=== PATIENT | male | born 1985 | race Caucasian/White ===

== ENCOUNTER 2020-05-09 07:14 | Day surgery (SDC) | payer OTHER ==
[~2020-05-09] VITALS: Ht 177.8 cm; Wt 104.5 kg
[~2020-05-09 07:14] MED LIST: BUSPIRONE HCL30 MG PO; HYDROCODON-ACE1 EAC7 PO; HYDROXYZINE HCL50 MG PO; LISINOPRIL20 MG PO; ZANAFLEX6 MG PO
[2020-05-09 07:42] LABS: CALC OSMOLALITY 279 mosm/kg (275-300); CALCIUM 8.8 mg/dL (8.5-10.1); CARBON DIOXIDE 30.1 mmol/L (21.0-32.0); CHLORIDE - SERUM 106 mmol/L (98-107); GLUCOSE 102 mg/dL (74-106); POTASSIUM - SERUM 3.9 mmol/L (3.5-5.1); SODIUM 141 mmol/L (136-145); UREA NITROGEN 11 mg/dL (7-18); eGFR NON AFRICAN AMERICAN > 90 mL/min (90-120)
[2020-05-09 07:59] LABS: SARS-CoV-2 ANTIGEN NEGATIVE- SARS-COV-2 (NEGATIVE)
[2020-05-09 08:04] LABS: HEMATOCRIT 45.1 % (42.0-54.0); HEMOGLOBIN 15.4 g/dL (13.5-17.5); LYMPHOCYTES 35.7 % (15-50); MCH 30.6 pg (26.0-34.0); MCHC 34.1 g/dL (31.0-37.0); MCV 89.5 fL (80.0-100.0); MEAN PLATELET VOLUME 11.2 fL (7.4-10.4); NEUTROPHILS 55.7 % (40-80); PLATELET COUNT 160 10x3/uL (130-400); RBC 5.04 10x6/uL (4.20-6.10); RDW 14.2 % (11.5-14.5); WBC 7.8 10x3/uL (4.8-10.8)
[2020-05-09] MEDS ORDERED: CELEBREX 100 M100 MG PO (08:17)
[2020-05-09 08:20] VITALS: BP 117/69; Ht 177.8 cm; Wt 104.5 kg
--- NOTE | 2020-05-09 15:33 | NUR ---
IV D/C'D WITH CANNULA INTACT, PRESSURE HELD AND DRSG PLACED. DISCHARGE INTRUCTIONS GIVEN AND PT VERBALIZED AN UNDERSTANDING. DISCHARGED HOME IN STABLE CONDITION AND WITHOUT C/O
--- NOTE | 2020-05-10 07:55 | OP ---
PATIENT NAME: GUIDO HUFF MEDICAL RECORD: [id number] :85 LOCATION:[facility] ADMISSION DATE: SURGEON: PATRICIA GALAN MD DATE OF OPERATION: 05/09/2020 PREOPERATIVE DIAGNOSES: 1. Left knee pain. 2. Lateral meniscus tear. POSTOPERATIVE DIAGNOSES: 1. Left knee pain. 2. Lateral meniscus tear. PROCEDURE PERFORMED: Left knee scope with partial lateral meniscectomy and limited synovectomy. INDICATIONS FOR THE PROCEDURE: Mr. Huff is a 34-year-old male with history of left knee pain. He injured his knee a few weeks ago and has been having pain ever since. MRI showed evidence of a tear in the anterior portion of the lateral meniscus. Arrangements were made for him to come to the operating room today for knee arthroscopy. Risks, benefits and alternatives of surgery were discussed with the patient and consent was obtained. DESCRIPTION OF PROCEDURE: The patient was met in the holding area where his identity and confirmation of the procedure was performed. Left lower extremity was marked. He was taken to the operating room where he was placed supine on the operating table and anesthesia was administered. Tourniquet was applied to the left thigh and the thigh was positioned in the leg smith. Left lower extremity was prepped and draped in a sterile fashion. The patient received preoperative antibiotics and timeout was performed before initiating the case. On initiation of the case, the leg was exsanguinated and the tourniquet was raised. Total tourniquet time was 29 minutes. We began with placement of our superior medial portal, inserted the cannula and filled the knee with fluid. We then placed our anterolateral portal and inserted the camera and placed in the anterior medial portal under direct visualization. Diagnostic knee arthroscopy was performed. 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 The trochlea was in good condition. The medial compartment was in good condition. No evidence of meniscus tear. ACL was intact. Lateral compartment cartilage was okay, but there was horizontal tearing in the anterior fibers of the anterior horn of the meniscus. Limited synovectomy and partial lateral meniscectomy was performed with the shaver. Before and after images were obtained. Fluid was then drained from the knee and instruments were removed. The portal sites were injected with 0.25% Marcaine with epinephrine. These were then closed with nylon suture. Sterile dressing was placed. The patient was turned back over to anesthesia where he was awakened, extubated, and taken to recovery room in stable condition. POSTOPERATIVE PLAN: The patient is going to return home with his family today. He may be weightbearing as tolerated on the left lower extremity. We will get him started with physical therapy in 2-3 days. Follow up in clinic in 2 weeks. COMPLICATIONS: None. ESTIMATED BLOOD LOSS: 5 mL. OPERATIVE REPORT [id number] GUIDO HUFF ANESTHESIA: General. TRANSINT:[id number] Voice Confirmation ID: [id number] DOCUMENT ID: [id number] PATRICIA GALAN MD at 0755 CC: [id number] DICTATION DATE: 05/09/20 1218 [facility]: 05/09/20 1246 [facility] 05/09/20 [id number] [place] [address]
== END 2020-05-09 14:05 | disposition home or self-care (01) ==
LOC: D.OPS 07:14
PROVIDERS: Anesthesiology; ATTEND Orthopaedic Surgery
DX: M25.562 Pain in left knee (principal); S83.282A Other tear of lateral meniscus, current injury, left knee, initial encounter; X58.XXXA Exposure to other specified factors, initial encounter; F17.200 Nicotine dependence, unspecified, uncomplicated; Z68.33 Body mass index [BMI] 33.0-33.9, adult